=== PATIENT | female | born 1940 | race Caucasian/White ===

== ENCOUNTER 2019-01-21 14:31 | Emergency (ER) | payer OTHER ==
[2019-01-21] MEDS ORDERED: TRAMADOL HCL 50 MG TAB ONE (14:43)
--- NOTE | 2019-01-21 15:26 | RAD REPORT ---
EXAM DESCRIPTION: RAD - Ankle Right 3 View - 01/21/2019 3:11 pm CLINICAL HISTORY: Trip and fall, ankle pain COMPARISON: None. FINDINGS: A trimalleolar fracture dislocation is present. There is a transverse fracture at the medi al malleolus with an oblique fracture of the distal fibula at the level of the tibiotalar joint line. A large posterior malleolus fracture fragment is present and the dome of the talus is dislocated pos teriorly. A fracture of the talus or calcaneus not identified. No midfoot fracture seen. Soft tissue swelling is present. No foreign body. IMPRESSION: Right ankle trimalleolar fracture dislocation as detailed.
[2019-01-21] MEDS ORDERED: NA CHLORIDE 0.9% 500 ML ONE (15:33)
[2019-01-21] MEDS ORDERED: ONDANSETRON 4 MG/2 ML VIAL ONE (15:33)
[2019-01-21] MEDS ORDERED: MORPHINE 4 MG/ML SYR ONE (15:33)
[2019-01-21] MEDS ORDERED: PROPOFOL 200 MG/20 ML VIAL IV ONE (15:34)
--- NOTE | 2019-01-21 16:23 | RAD REPORT ---
EXAM DESCRIPTION: RAD - Ankle Left 3 View - 01/21/2019 3:56 pm CLINICAL HISTORY: Trip and fall, ankle pain COMPARISON: None. FINDINGS: No fracture, dislocation or periosteal reaction. No joint effusion seen. Mild degenerative spurring changes are seen in the medial malleolus and tip of the fibula. Patient has spurring at the Achilles attachment. Mild soft tissue swelling is present. No foreign body. IMPRESSION: Mild soft tissue swelling with no acute bone or joint finding seen.
--- NOTE | 2019-01-21 16:40 | EDPHYS ---
Physician Documentation [facility] Name: Kassidy Montana Age: 78 yrs Sex: Female : 1940 Arrival Date: 01/21/2019 Time: 14:42 Bed 28 Private MD: ED Physician Lanre Green HPI: 01/21 15:35 This 78 yrs old Female presents to ER via EMS with complaints of ankle pain kb s/p fall. 15:35 The patient presents with a deformity, an injury, pain, swelling, tenderness. The kb complaints affect the right ankle. Onset: The symptoms/episode began/occurred just prior to arrival. Context: The problem was sustained outdoors, resulted from a mis-step by the patient, step, The mechanism of injury is unknown. The patient is unable to bear weight. The patient is not able to ambulate. Associated signs and symptoms: Pertinent positives: swelling. Modifying factors: The symptoms are alleviated by nothing, the symptoms are aggravated by weight bearing, movement. Severity of symptoms: At their worst the symptoms were moderate, in the emergency department the symptoms are unchanged. The patient has not experienced similar symptoms in the past. The patient has not recently seen a physician. Pt reports she stepped off of a step wrong and twisted her right ankle.. Historical: - Allergies: 14:49 No Known Allergies; rv - Home Meds: 14:49 atorvastatin oral oral [Active]; carvedilol oral oral [Active]; Furosemide Oral rv [Active]; pantoprazole oral oral [Active]; Singulair Oral [Active]; - PMHx: 14:49 CHF; Asthma; Pacemaker; rv - PSHx: 14:49 Appendectomy; rv - Immunization history:: Adult Immunizations up to date. - Social history:: Smoking status: Patient/guardian denies using tobacco, never smoked. - Ebola Screening: : No symptoms or risks identified at this time. ROS: 15:40 Constitutional: Negative for fever, chills, and weight loss, Cardiovascular: Negative kb for chest pain, palpitations, and edema, Respiratory: Negative for shortness of breath, cough, wheezing, and pleuritic chest pain, Abdomen/GI: Negative for abdominal pain, nausea, vomiting, diarrhea, and constipation, Back: Negative for injury and pain, Skin: Negative for injury, rash, and discoloration, Neuro: Negative for headache, weakness, numbness, tingling, and seizure. 15:40 MS/extremity: Positive for injury or acute deformity, decreased range of motion, pain, swelling, tenderness. Exam: 15:40 Constitutional: This is a well developed, well nourished patient who is awake, alert, kb and in no acute distress. Head/Face: Normocephalic, atraumatic. ENT: Nares patent. No nasal discharge, no septal abnormalities noted. Tympanic membranes are normal and external auditory canals are clear. Oropharynx with no redness, swelling, or masses, exudates, or evidence of obstruction, uvula midline. Mucous membranes moist. Neck: Trachea midline, no thyromegaly or masses palpated, and no cervical lymphadenopathy. Supple, full range of motion without nuchal rigidity, or vertebral point tenderness. No Meningismus. Chest/axilla: Normal chest wall appearance and motion. Nontender with no deformity. No lesions are appreciated. Cardiovascular: Regular rate and rhythm with a normal S1 and S2. No gallops, murmurs, or rubs. Normal PMI, no JVD. No pulse deficits. Respiratory: Lungs have equal breath sounds bilaterally, clear to auscultation and percussion. No rales, rhonchi or wheezes noted. No increased work of breathing, no retractions or nasal flaring. Abdomen/GI: Soft, non-tender, with normal bowel sounds. No distension or tympany. No guarding or rebound. No evidence of tenderness throughout. Skin: Warm, dry with normal turgor. Normal color with no rashes, no lesions, and no evidence of cellulitis. Neuro: Awake and alert, GCS 15, oriented to person, place, time, and situation. Cranial nerves II-XII grossly intact. Motor strength 5/5 in all extremities. Sensory grossly intact. Cerebellar exam normal. Normal gait. 15:40 Musculoskeletal/extremity: Extremities: grossly normal except: noted in the right ankle: decreased ROM, deformity, pain, swelling, tenderness, ROM: limited active range of motion due to pain, in the right ankle, Circulation is intact in all extremities. Sensation intact. Weight bearing: is unable to bear weight. Vital Signs: 14:47 BP 117 / 52; Pulse 76; Resp 16; Temp 98.6; Pulse Ox 96% on R/A; Weight 60.33 kg; Height rv 5 ft. 2 in. (157.48 cm); 15:30 BP 112 / 55; Pulse 68; Resp 16; Pulse Ox 95% on R/A; rv 16:00 BP 121 / 50; Pulse 67; Resp 17; Pulse Ox 95% on R/A; rv 16:30 BP 108 / 81; Pulse 62; Resp 16; Pulse Ox 100% on 2 lpm NC; rv 14:47 Body Mass Index 24.33 (60.33 kg, 157.48 cm) rv Procedures: 16:22 Splinting: Splint applied to right ankle using Orthoglass splint, applied by myself. rn post reduction film - reveals improved alignment, Examined by me, post splint application: neurovascular intact, 2+ distal pulses palpable, brisk capillary refill noted, Patient tolerated well. Reduction: of the right ankle, using traction, manipulation, Immobilized with stirrup and posterior leg splints. Patient tolerated well. Post reduction film - reveals improved alignment. Moderate sedation: Pre-procedure assessment: the patient has been NPO 4 hour(s) prior to arrival, ASA physical classification: II - mild/mod systemic disease that does not interfere with daily routines, Airway assessment: able to hyperextend neck, able to maintain airway, can open mouth without difficulty, Monitoring during procedure: monitoring and evaluation advisor, continuous pulse oximetry, nurse at bedside at all times, Medications employed: Propofol 80mg, Post-procedure assessment: the patient is mildly sedated, Respiratory status: even and unlabored, a reversal agent was not used. MDM: 14:45 Patient medically screened. kb 15:41 Data reviewed: vital signs, nurses notes. Data interpreted: Pulse oximetry: on room air kb is 96 %. Interpretation: normal. 16:16 Counseling: I had a detailed discussion with the patient and/or guardian regarding: the kb historical points, exam findings, and any diagnostic results supporting the discharge/admit diagnosis, radiology results, the need for outpatient follow up, a orthopedic surgeon, to return to the emergency department if symptoms worsen or persist or if there are any questions or concerns that arise at home. 16:22 ED course: Pt awake and smiling after reduction/sedation, awaiting post reduction film, rn anticipate dc home with ortho f/u and non-weight bearing, with crutches.. 01/21 14:47 Order name: Ankle Right 3 View XRAY; Complete Time: 15:40 kb 01/21 15:40 Order name: Ankle Left 3 View XRAY; Complete Time: 16:31 kb 01/21 16:21 Order name: Ankle Right 2 View XRAY kb 01/21 15:27 Order name: IV Start; Complete Time: 15:33 kb 01/21 15:27 Order name: Conscious Sedation; Complete Time: 15:48 kb 01/21 16:17 Order name: Splint Leg: Short Leg; Complete Time: 16:28 kb 01/21 16:17 Order name: Crutches; Complete Time: 16:28 kb Administered Medications: 14:45 Drug: traMADol 50 mg Route: PO; rv 16:39 Follow up: Response: No adverse reaction rv 15:40 Drug: morphine 4 mg Route: IVP; Site: left forearm; rv 16:40 Follow up: Response: No adverse reaction; Marked relief of symptoms; Pain is decreased rv 15:40 Drug: Zofran 4 mg Route: IVP; Site: left forearm; rv 16:40 Follow up: Response: No adverse reaction rv Disposition: 17:33 Co-signature as Attending Physician, Lanre Green MD. rn Disposition: 01/21/19 16:39 Discharged to Home. Impression: Trimalleolar fracture of lower leg - with dislocation, right ankle. - Condition is Stable. - Discharge Instructions: Displaced Trimalleolar Ankle Fracture Treated With Open Reduction, Ankle Fracture, [id number]. - Prescriptions for Tylenol- Codeine #3 300-30 mg Oral Tablet - take 2 tablets by ORAL route every 6 hours As needed; 16 tablet. - Medication Reconciliation Form, Thank You Letter, Antibiotic Education, Prescription Opioid Use form. - Follow up: Emergency Department; When: As needed; Reason: Worsening of condition. Follow up: Private Physician; When: 2 - 3 days; Reason: Recheck today's complaints, Continuance of care, Re-evaluation by your physician. Signatures: Dispatcher [employer] Elmira Villalpando, CLEANING TEAM MEMBER-C CLEANING TEAM MEMBER-Lanre Simms MD MD rn Vicente, Ronaldo, RN RN rv Corrections: (The following items were deleted from the chart) 17:00 16:39 01/21/2019 16:39 Discharged to Home. Impression: Trimalleolar fracture of lower rv leg - with dislocation, right ankle. Condition is Stable. Forms are Medication Reconciliation Form, Thank You Letter, Antibiotic Education, Prescription Opioid Use. Follow up: Emergency Department; When: As needed; Reason: Worsening of condition. Follow up: Private Physician; When: 2 - 3 days; Reason: Recheck today's complaints, Continuance of care, Re-evaluation by your physician. kb
--- NOTE | 2019-01-21 16:40 | ER ---
Nurse's Notes [facility] Name: Kassidy Montana Age: 78 yrs Sex: Female : 1940 Arrival Date: 01/21/2019 Time: 14:42 Bed 28 Private MD: Diagnosis: Trimalleolar fracture of lower leg-with dislocation, right ankle Presentation: 01/21 14:44 Presenting complaint: EMS states: patient fell from the last step of the stairs and rv landed her rear on top of her feet. denies any head injury. does not take any blood thinner. no LOC. complains of pain on both feet, worse on the right ankle. noticed swelling of the right ankle. Transition of care: patient was not received from another setting of care. Onset of symptoms was January 21, 2019 at 14:30. Risk Assessment: Do you want to hurt yourself or someone else? Patient reports no desire to harm self or others. Initial Sepsis Screen: Does the patient meet any 2 criteria? No. Patient's initial sepsis screen is negative. Does the patient have a suspected source of infection? No. Patient's initial sepsis screen is negative. Care prior to arrival: None. 14:44 Method Of Arrival: EMS rv 14:44 Acuity: ZOHRA 3 rv Historical: - Allergies: 14:49 No Known Allergies; rv - Home Meds: 14:49 atorvastatin oral oral [Active]; carvedilol oral oral [Active]; Furosemide Oral rv [Active]; pantoprazole oral oral [Active]; Singulair Oral [Active]; - PMHx: 14:49 CHF; Asthma; Pacemaker; rv - PSHx: 14:49 Appendectomy; rv - Immunization history:: Adult Immunizations up to date. - Social history:: Smoking status: Patient/guardian denies using tobacco, never smoked. - Ebola Screening: : No symptoms or risks identified at this time. Screenin:51 Abuse screen: Denies threats or abuse. Denies injuries from another. Nutritional rv screening: No deficits noted. Tuberculosis screening: No symptoms or risk factors identified. Fall Risk None identified. Assessment: 14:50 General: Appears in no apparent distress. comfortable, Behavior is calm, cooperative. rv Pain: Complains of pain in right foot and left foot. Neuro: Level of Consciousness is awake, alert, obeys commands, Oriented to person, place, time, situation. Cardiovascular: Patient's skin is warm and dry. Respiratory: Airway is patent. GI: No signs and/or symptoms were reported involving the gastrointestinal system. : No signs and/or symptoms were reported regarding the genitourinary system. EENT: No signs and/or symptoms were reported regarding the EENT system. Derm: Skin is fragile. Musculoskeletal: Swelling present in right ankle. 15:49 Reassessment: Patient appears in no apparent distress at this time. Patient and/or rv family updated on plan of care and expected duration. Pain level reassessed. Patient is alert, oriented x 3, equal unlabored respirations, skin warm/dry/pink. Dr Green went to exam room explained to the patient and family the result of Xray and plan of care. consent signed by the patient. Vital Signs: 14:47 BP 117 / 52; Pulse 76; Resp 16; Temp 98.6; Pulse Ox 96% on R/A; Weight 60.33 kg; Height rv 5 ft. 2 in. (157.48 cm); 15:30 BP 112 / 55; Pulse 68; Resp 16; Pulse Ox 95% on R/A; rv 16:00 BP 121 / 50; Pulse 67; Resp 17; Pulse Ox 95% on R/A; rv 16:30 BP 108 / 81; Pulse 62; Resp 16; Pulse Ox 100% on 2 lpm NC; rv 14:47 Body Mass Index 24.33 (60.33 kg, 157.48 cm) rv ED Course: 14:42 Patient arrived in ED. rv 14:44 Elmira Domingo FNP-C [facility]. kb 14:44 Lanre Green MD is Attending Physician. kb 14:47 Triage completed. rv 14:52 Patient has correct armband on for positive identification. Placed in gown. Bed in low rv position. Call light in reach. Side rails up X 1. Pulse ox on. NIBP on. 14:52 Patient placed in the treatment room, on a stretcher, on pulse oximetry, Patient rv notified of wait time. 14:53 Ice pack to injury. rv 14:54 Reginald Trujillo, HOLLY is Primary Nurse. rv 15:14 Ankle Right 3 View XRAY In Process Unspecified. EDMS 15:35 Inserted saline lock: 20 gauge in left forearm, using aseptic technique. rv 15:58 Ankle Left 3 View XRAY In Process Unspecified. EDMS 16:25 Assist provider with fracture care of right leg and right ankle Fracture is closed. jp3 Obvious deformity Set up for procedure. Performed by Lanre Green MD Reduced with physical manipulation. Immobilized with orthoglass. Patient tolerated well. Richard wrap to right ankle Orthoglass splint: Posterior short lleg splint applied on right leg. stirrup splint applied on right leg. 16:31 Assist provider with reduction of right ankle using manipulation, Set up for procedure. rv Performed by Lanre Green MD Patient tolerated well. 16:38 Ankle Right 2 View XRAY In Process Unspecified. EDMS 16:44 IV discontinued, intact, bleeding controlled, No redness/swelling at site. Pressure rv dressing applied. Administered Medications: 14:45 Drug: traMADol 50 mg Route: PO; rv 16:39 Follow up: Response: No adverse reaction rv 15:40 Drug: morphine 4 mg Route: IVP; Site: left forearm; rv 16:40 Follow up: Response: No adverse reaction; Marked relief of symptoms; Pain is decreased rv 15:40 Drug: Zofran 4 mg Route: IVP; Site: left forearm; rv 16:40 Follow up: Response: No adverse reaction rv Outcome: 16:39 Discharge ordered by MD. kb 16:42 Discharged to home via wheelchair, with crutches, with family. rv 16:42 Condition: good 16:42 Discharge instructions given to patient, family, Instructed on discharge instructions, follow up and referral plans. medication usage, crutch walking, Demonstrated understanding of instructions, follow-up care, medications, crutch walking, splint care, Prescriptions given X 16:44 Prescriptions given X 1. rv 17:00 Patient left the ED. rv Signatures: Dispatcher [employer] EDMS Elmira Domingo FNP-C FNP-Reginald Hunter RN RN Gagan Charles jp3
--- NOTE | 2019-01-21 16:52 | RAD REPORT ---
EXAM DESCRIPTION: RAD - Ankle Right 2 View - 01/21/2019 4:37 pm FINDINGS: Right ankle two view examination performed. Cast or splint material is in place. Dislocated talus has been reduced to anatomic positioning. Large posterior malleolus fracture fragmen t again noted. Fibula and medial malleolus fracture fragments are not significantly different.
[2019-01-21 17:24] VITALS: TEMP 98.6
[2019-01-21 17:28] VITALS: BP 108/81; O2SAT 100
== END 2019-01-21 17:00 | disposition home or self-care (01) ==
LOC: ER 14:31
PROC: 0QSGXZZ Reposition Right Tibia, External Approach (ICD-10-PCS; principal; 2019-01-21)
DX: S82.851A Displaced trimalleolar fracture of right lower leg, initial encounter for closed fracture (principal); W10.9XXA Fall (on) (from) unspecified stairs and steps, initial encounter; Y93.9 Activity, unspecified; Y92.9 Unspecified place or not applicable; Z95.0 Presence of cardiac pacemaker; J45.909 Unspecified asthma, uncomplicated; I50.9 Heart failure, unspecified
CPT/HCPCS: 73610 ×2; 73600; 96375; 96374; 99285; 27818; J2704; J7040; J2405

== ENCOUNTER 2019-01-25 09:33 | Day surgery (SDC) | payer OTHER ==
[2019-01-25 10:01] LABS: Absolute Lymphocytes (CBC) 1.5 K/uL (0.7-4.9); Basophils % 0.4 % (0-1.3); Hematocrit 35.8 % (36.0-45.0); RBC Red Blood Cell Count 3.83 M/uL (3.86-4.86)
[2019-01-25] MEDS ORDERED: Ringers Lactate 1,000 ML IV ONE ×2 (10:05→12:51)
[2019-01-25] MEDS ORDERED: CEFAZOLIN/SWI 1gm 1 GM/10 ML SYR ONE (10:05)
[2019-01-25] MEDS ORDERED: NS 0.9% VIAL 10 ML ONE ×2 (10:36→12:46)
[2019-01-25] MEDS ORDERED: dexAMETHasone 10 MG/ML VIAL ONE (10:37)
[2019-01-25] MEDS ORDERED: ROPLVACAINE HCL 40 ML ONE (10:37)
[2019-01-25] MEDS ORDERED: FENTANYL CITR 100 MCG/2 ML ONE (10:37)
[2019-01-25] MEDS ORDERED: MIDAZOLAM HCL 2 MG/2 ML INJ ONE (10:37)
[2019-01-25] MEDS ORDERED: LIDOCAINE 2% MPF 5 ML VIAL ONE (11:27)
[2019-01-25] MEDS ORDERED: PROPOFOL 200 MG/20 ML VIAL IV ONE (11:27)
[2019-01-25] MEDS ORDERED: ONDANSETRON 4 MG/2 ML VIAL ONE (11:32)
[2019-01-25] MEDS ORDERED: Phenylephrine HCl 10 MG/ML 1 ML VIAL ONE (12:46)
--- NOTE | 2019-01-25 14:21 | P.BOP ---
Preoperative diagnosis: right trimalleolar ankle fx Postoperative diagnosis: same Primary procedure: ORIF bimalleolar Estimated blood loss: 10 ccs Anesthesia: General Complications: None Transferred to: Recovery Room Condition: Good
--- NOTE | 2019-01-25 14:39 | RAD REPORT ---
EXAM DESCRIPTION: RAD - Ankle Right 2 View - 01/25/2019 2:35 pm CLINICAL HISTORY: ORIF COMPARISON: Ankle Right 2 View dated 01/21/2019 FINDINGS: Fluoroscopy time 0.5 minutes.
[2019-01-25] MEDS ORDERED: HYDROCODONE/APAP 5/325 MG TAB ONE (15:37)
[2019-01-25 15:56] VITALS: BP 123/58; TEMP 97.1; O2SAT 93
--- NOTE | 2019-01-25 16:51 | EKG ---
Test Date: 2019-01-25 Test Time: 09:53:39 Supervisor Looping: KRIS MEASUREMENT RESULTS: Intervals: Rate: 80 ME: 124 QRSD: 116 QT: 416 QTc: 479 [place]: P: 78 ME: 124 QRS: 160 T: 87 INTERPRETIVE STATEMENTS: Atrial-sensed ventricular-paced rhythm tracking sinus rhytym Compared to ECG 03/09/2011 10:16:28 No significant changes Electronically Signed On 01-25-19 16:50:32 SALOON KEEPER by Fer Gomez
--- NOTE | 2019-01-26 01:45 | OP ---
Date of Procedure: 01/25/2019 Surgeon: Allen Odonnell MD Preoperative Diagnosis: Right trimalleolar ankle fracture. Postoperative Diagnosis: Right trimalleolar ankle fracture. Procedures: Right open reduction and internal fixation of both medial and lateral malleolus. Plate Used: Acumed 3 ankle set. Estimated Blood Loss: 10 mL. Complications: There were no complications. Specimens: No pathology specimens sent. Indications For Operation: Ms. Montana is a 78-year-old female who unfortunately injured her right low er extremity. This was approximately 3 days ago. She saw me in my office yesterday and her splint w as taken down. She did not have any fracture blisters and the skin did wrinkle. We plan on operatin g on her today, but only if the skin does wrinkle. All risks, benefits, and alternatives to the proc edure were discussed with her at that time as well as in holding. In the holding area, her skin was examined and found that it did indeed wrinkle in the time allowed for operative intervention. X-rays revealed a trimalleolar ankle fracture with a very small medial malleolar fragment. Description Of Procedure: The patient was taken to the operating room and placed in supine position, general anesthesia was obtained by the staff. Following this, well-padded tourniquet was placed on superior right thigh. Right lower extremity was then prepped and draped in the usual fashion for the procedure. Following this, the leg was then elevated, but not exsanguinated. Tourniquet was raised . C-arm was brought in and a standard medial incision was taken down carefully through the skin and soft tissues. Meticulous hemostasis being maintained using Bovie electrocautery. This leads down to the fracture fragment, which is quite small, it did appear that would hold 1 cannulated screw. Also , it should be noted that the bone was extremely osteoporotic. Cannulated screw was then placed with some compression and reapproximating the joint surface of the medial malleolus. Following this, it irrigated and the skin was closed using interrupted Vicryl sutures followed by yolanda. Attention wa s then turned to the lateral aspect and a bump was placed under the right hip. C-arm was brought in to elsie the location of the fracture and a fairly long relaxing incision was made carefully through s kin and soft tissues. Meticulous hemostasis being maintained using Bovie electrocautery. This leads down to the fracture site, which was then cleared. The bone was so osteoporotic that the reduction clamp very easily penetrates the cortex. Therefore, this is used in a very limited fashion. Also, I do not feel that a standard lag screw would be of benefit because of her very poor bone stock. This is also the reason we used the Acumed locking plate as this is applied with locking screws for more rigid construct. The ankle was held in a position of reduction and then a more or less bridge platin g technique is used to place the plate. Did place the plate slightly more proximal than normal as it is felt that more distally we would have less bony purchase. The wound was then irrigated and the s kin was closed using interrupted Vicryl sutures, followed by yolanda. The patient was then placed in extremely well-padded sterile dressing as well as a posterior splint with a U. She is awakened and taken to the recovery room in good condition. There were no complications. /CALEB Voice ID: [id number] Report ID: [id number]
== END 2019-01-25 16:22 | disposition home or self-care (01) ==
LOC: OR 09:33
PROVIDERS: ATTEND Orthopaedic Surgery
PROC: 0QSG04Z Reposition Right Tibia with Internal Fixation Device, Open Approach (ICD-10-PCS; 2019-01-25)
PROC: 0QSJ04Z Reposition Right Fibula with Internal Fixation Device, Open Approach (ICD-10-PCS; principal; 2019-01-25 12:30)
DX: S82.851A Displaced trimalleolar fracture of right lower leg, initial encounter for closed fracture (principal); J45.909 Unspecified asthma, uncomplicated; E78.5 Hyperlipidemia, unspecified; K21.9 Gastro-esophageal reflux disease without esophagitis; Z95.0 Presence of cardiac pacemaker; Z79.01 Long term (current) use of anticoagulants
CPT/HCPCS: 93005; 85025; 80048; 36415; 73600; 27814; J2704; J2370; J2250; J3010; J1100; J2795; J0690; J7120 ×2; J2405

== ENCOUNTER 2022-09-21 17:41 | Emergency (ER) | payer OTHER ==
--- OUTSIDE RECORDS SUMMARY | 2022-09-21 17:44 | XMS REPORT | Continuity of Care Document ---
:1940 Author Organization [facility] t Address [address] [place] [address] [address] [place] [address] Care Team Providers Name Role Phone STEPHANIE NORTON Attending Clinician Unavailable [id number] Attending Clinician Unavailable Erinn Gudino APRN Attending Clinician DERICK WILLIS Attending Clinician Unavailable Payers Payer Name Policy Type Policy Number Effective Date Expiration Date S liv [employer] MEDICARE [id number] 2019 2024 HMO 00:00:00 00:00:00 [place] 5 [id number] 2022 00:00:00 Problems Condition Condition Condition Status Onset Resolution Last Treating Co mments Source Name Details Category Date Date Treatment Clinician Date Right hip Right hip Disease Active Shai orona pain pain 6-05 Seybold 00:00: - 00 Externa l Well adult Well adult Disease Active K aldair exam exam 1-18 Seybold 00:00: - 00 Externa l Primary Primary Disease Active Jeanna hypertensi hypertensi 1-18 Se ybold on on 00:00: - 00 Externa l Chronic Chronic Disease Active Jeanna systolic systolic 1-18 Seybol d congestive congestive 00:00: - heart heart 00 Externa failure failure l Gastroesop Gastroesop Disease Active K aldair hageal hageal 1-18 Seybold reflux reflux 00:00: - disease disease 00 Externa without without l esophagiti esophagiti s s 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 1-18 Se ybold asthma asthma 00:00: - without without 00 Externa complicati complicati l on on Seasonal Seasonal Disease Active Kelse y allergic allergic 1-18 Seybol d rhinitis rhinitis 00:00: - due to due to 00 Externa pollen pollen l Early dry Early dry Disease Active Shai sey stage stage 1-18 Seybold nonexudati nonexudati 00:00: - ve ve 00 Externa age-relate age-relate l 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 History of History of Disease Active K elsey cardiac cardiac 18 Seybold pacemaker pacemaker 00:00: - 00 Externa l History of History of Disease Active K elsey placement placement -18 Seyb old of of 00:00: - internal internal 00 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 ICD10 Diagnosis Term Insecticide Expert Utility HLD HLD Disease Active Overview: [place] (hyperlipi (hyperlipi 11-17 Counts Include [facility] Health demia) demia) 00:00: g of this 00 note might be different from the original. ICD10 Diagnosis Term Insecticide Expert Utility Left heart Left heart Disease Active U T failure failure 11-17 Health 00:00: 00 Reflux Reflux Disease Active UT esophagiti esophagiti 11-17 He alth s s 00:00: 00 Sleep Sleep Disease Active Overview: [place] [facility]: g of this 00 note might be different from the original. ICD10 Diagnosis Term Insecticide Expert Utility Allergies, Adverse Reactions, Alerts This patient has no known allergies or adverse reactions. Social History Social Habit Start Date Stop Date Quantity Comments Source History SDOH Jeanna hendricks Alcohol Frequency - Exter nal History SDOH Jeanna Alonso ld Alcohol Std Drinks - Exte rnal Gender identity Jeanna ochoa - External Sexual orientation Jeanna Phan - External History SDOH Jeanna Rachelleaime hednricks Alcohol Binge - External Exposure to Not sure [facility] SARS-CoV-2 (event) Alcohol intake 2022-08-15 2022-08-15 Current drinker of [place] arevaloginger [place] 00:00:00 00:00:00 alcohol (finding) - Exter nal Education 2022-03-30 2022-03-30 16 Jeanna Phan 00:00:00 00:00:00 - External Tobacco use and 2022-03-30 2022-03-30 Smokeless tobacco Glen Phan exposure 00:00:00 00:00:00 non-user - External History of Social 2022-03-30 2022-03-30 Jeanna Rachelledebra function 00:00:00 00:00:00 - External Alcohol Comment 2022-03-30 2022-03-30 occasionally Jeannaadwoa Phan 00:00:00 00:00:00 - External Sex [birth year] At [birth year] Jeanna ochoa 00:00:00 00:00:00 - External Smoking Status Start Date Stop Date Source Never smoked tobacco Jeanna richardson - External Medications Ordered Filled Start Stop Current Ordering Indication Dosage Frequency Signature Comments Components Source Medication Medication Date Date Medication? Clinician (SIG) Name Name Budesonide- Yes 2{puff} Inhale 2 Jeanna Formoterol 6-05 puffs into Sey bold Fumarate 09:58: the lungs - 160-4.5 33 2 times Externa MCG/ACT daily l inhalation Aerosol Aspirin 81 2022-0 Yes 81mg Take 1 Kelse y MG oral 6-05 tablet (81 Seybol d Tablet 09:58: mg total) - Delayed 33 by mouth Externa Response daily l [place]-3 2022-0 Yes 1{capsu Take 1 Kelse y Fatty Acids 6-05 le} capsule by Se ybold (Fish Oil) 09:58: mouth 2 - 1200 MG 33 times Externa oral daily l Capsule Pantoprazol 2022-0 Yes 40mg Take 1 Ana ey e Sodium 40 6-05 tablet (40 Se ybold MG oral 09:58: mg total) - Tablet 33 by mouth Externa Delayed daily l Response Sacubitril- 2022-0 Yes 1{each} Take 1 K elsey Valsartan 6-05 each by Seybold 49-51 MG 09:58: mouth 2 - oral Tablet 33 times Externa daily l Atorvastati 0 Yes [id number] 10mg Take 1 Jeanna n Calcium 6-05 tablet (10 Seyb old (Lipitor) 00:00: mg total) - 10 MG oral 00 by mouth Exter na Tablet nightly l Tizanidine 0 Yes [id number] 2mg QD Take 1 Jeanna HCl 2 MG 6-05 9102 tablet (2 Seybol d oral Tablet 00:00: mg total) - 00 by mouth Externa nightly as l needed for muscle spasms Albuterol 2022-0 Yes 2{puff} Q.25D Inhale 2 Jeanna HFA 108 (90 5-08 puffs into Se ybold Base) 00:00: the lungs - MCG/ACT IN 00 every 6 Him Specialist a AERS hours as l needed for shortness of breath Montelukast 0 Yes 10mg Take 1 Ana ey (SINGULAIR) 5-08 tablet (10 Se ybold 10 MG oral 00:00: mg total) - Tablet 00 by mouth Externa tablet nightly l Carvedilol 2022-0 Yes 6.25mg Take 1 Shai sey 6.25 MG 4-11 tablet Seybold oral Tablet 00:00: (6.25 mg - 00 total) by Externa mouth in l the morning and 1 tablet (6.25 mg total) in the evening. Take with meals. Amoxicillin 0 2022- No [id number] 1{tbl} Take 1 Jeanna -Pot 2-20 06-05 tablet by [employer] Systemsold Clavulanate 00:00: 00:00 mouth 2 - 875-125 MG 00 :00 times Externa oral Tablet daily l [place]-3 Yes 1{capsu Take 1 Kelse y Fatty Acids 1-18 le} capsule by Bizzby ybold (Fish Oil) 10:03: mouth 2 - 1200 MG 04 times Externa oral daily l Capsule Aspirin 81 Yes 81mg Take 81 mg K elsey MG oral 1-18 by mouth Seybold Tablet 10:02: daily - Delayed 37 Externa Response l Budesonide- Yes 2{puff} Inhale 2 Jeanna Formoterol 1-18 puffs into [facility] [employer] bold Fumarate 10:02: the lungs - 160-4.5 20 2 times Externa MCG/ACT daily l inhalation Aerosol Albuterol Yes 2{puff} Q.25D Inhale 2 Jeanna HFA 108 (90 1-18 puffs into Bizzby ybold Base) 10:02: the lungs - MCG/ACT IN 09 every 6 Him Specialist a AERS hours as l needed for shortness of breath Carvedilol Yes 6.25mg Take 6.25 Jeanna 6.25 MG 1-18 mg by Seybold oral Tablet 10:01: mouth in - 48 the Externa morning l and 6.25 mg in the evening. Take with meals. Montelukast Yes 10mg Take 10 mg Jeanna (SINGULAIR) 1-18 by mouth Seyb old 10 MG oral 10:01: nightly - Tablet 31 Externa tablet l Sacubitril- Yes 1{each} Take 1 K elsey Valsartan 1-18 each by Seybold 49-51 MG 10:01: mouth 2 - oral Tablet 19 times Externa daily l Pantoprazol Yes 40mg Take 40 mg Jeanna e Sodium 40 1-18 by mouth Seyb old MG oral 10:00: daily - Tablet 56 Externa Delayed l Response pantoprazol Yes 40mg Take 40 mg UT e 5-18 by mouth 1 Health (ProtoNix) 19:56: (one) time 40 MG EC 37 each day tablet before breakfast. Do not crush, chew, or split. budesonide- Yes 2{puff} Q.5D Inhale 2 UT formoterol 5-18 puffs 2 Health (Symbicort) 19:56: (two) 160-4.5 37 times a MCG/ACT day. Rinse inhaler mouth with water after use to reduce aftertaste and incidence of candidiasi s. Do not swallow. sacubitril- Yes 1{tbl} Q.5D Take 1 UT valsartan 5-18 tablet by Healt h (Entresto) 19:56: mouth 2 49-51 MG 37 (two) tablet times a day. albuterol Yes 2{puff} Q6H Inhale 2 U T 108 (90 5-18 puffs Health Base) 19:56: every 6 MCG/ACT 37 (six) inhaler hours if needed for wheezing. Biotin 100 Yes Take by UT MG/GM 5-18 mouth. Health powder 19:56: 37 furosemide Yes Take by UT (Lasix) 20 5-18 mouth. Health MG tablet 19:56: 37 montelukast Yes 10mg QD Take 10 mg UT (Singulair) 4-10 by mouth 1 He alth 10 MG 00:00: (one) time tablet 00 each day. carvedilol Yes TAKE 1 UT (Coreg) 3-03 TABLET Health 6.25 MG 00:00: (6.25MG) tablet [address] 2 TIMES EVERY DAY WITH FOOD Immunizations Ordered Immunization Filled Immunization Date Status Commen ts Source Name Name Influenza Virus 2022-01-12 Completed Jeanna raviold Vaccine, 00:00:00 - External Quadrivalent, High Dose, Age 65 And Up Influenza Virus 2022-01-12 Completed Jeanna raviold Vaccine, 00:00:00 - External Quadrivalent, High Dose, Age 65 And Up Influenza Virus 2021-04-07 Completed Jeanna raviold Vaccine, 00:00:00 - External Quadrivalent, High Dose, Age 65 And Up Influenza Virus 2021-04-07 Completed Jeanna raviold Vaccine, 00:00:00 - External Quadrivalent, High Dose, Age 65 And Up Influenza Virus 2020-12-25 Completed Jeanna Fabian ybold Vaccine, 00:00:00 - External Quadrivalent, High Dose, Age 65 And Up Influenza Virus 2020-12-25 Completed Jeanna Fabian ybold Vaccine, 00:00:00 - External Quadrivalent, High Dose, Age 65 And Up Influenza Virus 2007-01-03 Completed Jeanna Fabian ybold Vaccine, Unspecified 00:00:00 - Ex ternal Formulation Influenza Virus 2007-01-03 Completed Jeanna Fabian ybold Vaccine, Unspecified 00:00:00 - Ex ternal Formulation Influenza Virus 2006-02-15 Completed Jeanna Fabian ybold Vaccine, Unspecified 00:00:00 - Ex ternal Formulation Influenza Virus 2006-02-15 Completed Jeanna ochoa Vaccine, Unspecified 00:00:00 - Ex ternal Formulation Vital Signs Vital Name Observation Time Observation Value Comments Source Body height 2022-08-15 14:56:00 157.5 cm Jeanna [place] - External Body weight 2022-08-15 14:56:00 56.246 kg Jeanna Daquan gingerbold - External BMI 2022-08-15 14:56:00 22.68 kg/m2 Jeanna Daquan [place] - External Oxygen saturation in 2022-08-15 14:56:00 98 /min Jeanna Phan - Arterial blood by External Pulse oximetry Systolic blood 2022-08-15 14:56:00 136 mm[Hg] Jeanna Phan - pressure External Diastolic blood 2022-08-15 14:56:00 75 mm[Hg] Edvin Phan - pressure External Heart rate 2022-08-15 14:56:00 75 /min Jeanna milesbold - External Body temperature 2022-08-15 14:56:00 37.06 Felipa Ana miles Seybold - External Respiratory rate 2022-08-15 14:56:00 14 /min Ana miles Seybold - External Systolic blood 2022-03-30 16:22:00 121 mm[Hg] Jeanna Bushold - pressure External Diastolic blood 2022-03-30 16:22:00 82 mm[Hg] Edvin nguyen Seybold - pressure External Heart rate 2022-03-30 16:22:00 84 /min Jeanna [place] - External Body temperature 2022-03-30 16:22:00 36.5 Felipa Ana Phan - External Respiratory rate 2022-03-30 16:22:00 15 /min Ana Phan - External Body height 2022-03-30 16:22:00 157.5 cm Jeanna [place] - External Body weight 2022-03-30 16:22:00 57.607 kg Jeanna [place] - External BMI 2022-03-30 16:22:00 23.23 kg/m2 Jeanna [place] - External Oxygen saturation in 2022-03-30 16:22:00 95 /min Jeanna Phan - Arterial blood by External Pulse oximetry Systolic blood 2020-07-28 19:53:00 138 mm[Hg] [facility] pressure Diastolic blood 2020-07-28 19:53:00 81 mm[Hg] [facility] pressure Heart rate 2020-07-28 19:53:00 83 /min [facility] Body weight 2020-07-28 19:53:00 57.153 kg [facility] Procedures This patient has no known procedures. Encounters Start End Encounter Admission Attending Care Care Encounter Source Date/Time Date/Time Type Type Clinicians Facility Department ID 2022-02-01 Outpatient [facility] [id number] [place] 11:58:37 [id number] Health 2022-09-21 2022-09-21 Outpatient JEANNA NORTON [id number] Jeanna 00:00:00 00:00:00 STEPHANIE Seybol d 2022-09-21 2022-09-21 Outpatient JEANNA NORTON [id number] Jeanna 00:00:00 00:00:00 STEPHANIE Seybol d 2022-09-21 2022-09-21 Outpatient JEANNA NORTON [id number] Jeanna 00:00:00 00:00:00 STEPHANIE Seybol d 2022-09-20 2022-09-20 Outpatient JEANNA NORTON [id number] Jeanna 00:00:00 00:00:00 STEPHANIE Seybol d 2022-08-30 2022-08-30 Outpatient JEANNA NORTON [id number] Jeanna 00:00:00 00:00:00 STEPHANIE Seybol d 2022-08-23 2022-08-23 Outpatient PREZAS, JEANNA CABRALES [id number] Jeanna 00:00:00 00:00:00 STEPHANIE Seybol d 2022-08-15 2022-08-15 Outpatient PREZAS, JEANNA CABRALES [id number] Jeanna 10:15:00 10:15:00 STEPHANIE Seybol d 2022-07-18 2022-07-18 Outpatient PREZAS, JEANNA CABRALES [id number] Jeanna 00:00:00 00:00:00 STEPHANIE Seybol d 2022-06-28 2022-06-28 Outpatient PREZAS, JEANNA CABRALES [id number] Jeanna 10:00:00 10:00:00 STEPHANIE Seybol d 2022-06-20 2022-06-20 Outpatient PREZAS, JEANNA CABRALES [id number] Jeanna 00:00:00 00:00:00 STEPHANIE Seybol d 2022-05-02 2022-05-02 Outpatient PREZAS, JEANNA CABRALES [id number] Jeanna 00:00:00 00:00:00 STEPHANIE Seybol d 2022-04-27 2022-04-27 Outpatient LAB90 JEANNA CABRALES [id number] Jeanna 11:00:00 11:00:00 Seybol d 2022-04-27 2022-04-27 Outpatient PREZAS, JEANNA CABRALES [id number] Jeanna 00:00:00 00:00:00 STEPHANIE Seybol d 2022-04-12 2022-04-12 Outpatient PREZAS, JEANNA CABRALES [id number] Jeanna 00:00:00 00:00:00 STEPHANIE Seybol d 2022-04-07 2022-04-07 Outpatient LAB90 JEANNA CABRALES [id number] Jeanna 15:00:00 15:00:00 Seybol d 2022-04-07 2022-04-07 Outpatient PREZAS, JEANNA CABRALES [id number] Jeanna 00:00:00 00:00:00 STEPHANIE Seybol d 2022-04-06 2022-04-06 Outpatient PREZAS, JEANNA CABRALES [id number] Jeanna 00:00:00 00:00:00 STEPHANIE Seybol d 2022-03-30 2022-03-30 Outpatient LAB90 JEANNA JEANNA [id number] Jeanna 11:15:00 11:15:00 Seybol d 2022-03-30 2022-03-30 Outpatient CIERRA JEANNA CABRALES [id number] Jeanna 10:15:00 10:15:00 STEPHANIE Seybol d 2020-07-28 2020-07-28 Office HENRIK Gudino [facility] [id number] [place] 14:33:57 16:00:32 Visit Erinn TOMASZ [id number] H martha RAY 2 [id number] 2020-07-17 2020-07-17 Outpatient SANTHOSH WILLIS CAR [id number] 13:55:00 18:45:00 [facility] Results This patient has no known results.
[2022-09-21] MEDS ORDERED: ONDANSETRON 4 MG/2 ML VIAL ONE (20:31)
[2022-09-21] MEDS ORDERED: NA CHLORIDE 0.9% 500 ML ONE (20:32)
[2022-09-21] MEDS ORDERED: NA CHLORIDE 0.9% 1,000 ML ONE (20:32)
[2022-09-21 20:54] LABS: Absolute Lymphocytes (CBC) 1.5 K/uL (0.7-4.9); Hematocrit 42.7 % (36.0-45.0); Lymphocytes % 9.7 % (15.3-44.8); RBC Red Blood Cell Count 4.64 M/uL (3.86-4.86)
[2022-09-21 21:45] LABS: Albumin 3.4 g/dL (3.4-5.0); Bilirubin Total 0.6 mg/dL (0.2-1.0); Potassium 4.2 mEq/L (3.5-5.1); Protein, Total 7.2 g/dL (6.4-8.2)
[2022-09-21] MEDS ORDERED: FENTANYL CITR 100 MCG/2 ML ONE (22:40)
[2022-09-21] MEDS ORDERED: METOCLOPRAMIDE 10 MG/2mL INJ ONE (22:40)
[2022-09-21] MEDS ORDERED: DIPHENHYDRAMINE 50 MG/ML VIAL ONE (22:40)
[2022-09-21] MEDS ORDERED: KETOROLAC 30 MG/ML INJ ONE (22:41)
--- NOTE | 2022-09-21 22:48 | RAD REPORT ---
EXAM DESCRIPTION: CT - Head Brain Wo Cont - 09/21/2022 10:40 pm CLINICAL HISTORY: HEADACHE COMPARISON: Head angio dated 09/21/2022 TECHNIQUE: All CT scans are performed using dose optimization technique as appropriate and may inclu de automated exposure control or mA/KV adjustment according to patient size. FINDINGS: No intracranial hemorrhage, hydrocephalus or extra-axial fluid collection.No areas of brai n edema or evidence of midline shift. Mild chronic small vessel ischemic changes. Left sphenoid sinus opacification. Some of the sphenoid sinus contents are hyperdense and may represe nt inspissated secretions. The calvarium is intact. IMPRESSION: No acute intracranial abnormality.
--- NOTE | 2022-09-21 22:52 | RAD REPORT ---
EXAM DESCRIPTION: CT - Neck Angio - 09/21/2022 10:40 pm CLINICAL HISTORY: HEADACHE COMPARISON: No comparisons TECHNIQUE: CT angiography of the neck vessels was performed with maximum intensity reformatted image s. 3D maximum intensity pixel (MIP) reconstructions were created All CT scans are performed using dose optimization technique as appropriate and may include automated exposure control or mA/KV adjustment according to patient size. CAROTID STENOSIS REFERENCE USING NASCET CRITERIA: Mild - <50% stenosis. Moderate - 50-69% stenosis. Severe - 70-94% stenosis. Near occlusion - 95-99% stenosis. Occluded - 100% stenosis. FINDINGS: A left aortic arch is identified with normal three vessel configuration of the great vesse ls. No significant flow abnormality is seen of the common carotid bilaterally. Mild calcified plaque at b oth proximal ICAs. No significant stenosis is identified involving the cervical segments of both internal carotid arteri es. Normal flow is seen within both vertebral arteries. Apical scarring. Left lower lobe pulmonary nodule measuring 10 millimeters. Right upper lobe pulmonar y nodule calcified hilar and mediastinal lymph nodes. These findings are likely related to remote gra nulomatous disease. IMPRESSION: No significant flow abnormality of the neck vessels is identified. Apical lung scarring, calcified mediastinal and hilar lymph nodes, and architectural distortion likel y sequela of remote infection in the lungs. Some discrete pulmonary nodules are noted. A 3-6 month fo llow-up chest CT could be considered.
--- NOTE | 2022-09-21 22:53 | RAD REPORT ---
EXAM DESCRIPTION: CT - Head angio - 09/21/2022 10:40 pm CLINICAL HISTORY: HEADACHE COMPARISON: No comparisons TECHNIQUE: CT angiography of the head was performed with maximum intensity reformatted images. 3D ma ximum intensity pixel (MIP) reconstructions were created All CT scans are performed using dose optimization technique as appropriate and may include automated exposure control or mA/KV adjustment according to patient size. FINDINGS: Anterior circulation: No aneurysm or large vessel occlusion. No hemodynamically significant stenosis. No arteriovenous malf ormation identified. Posterior circulation: No aneurysm or large vessel occlusion. No hemodynamically significant stenosis. No arteriovenous malf ormation identified. 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 Opacified left sphenoid sinus. IMPRESSION: No significant flow abnormality is detected.
--- NOTE | 2022-09-21 23:32 | EDPHYS ---
Physician Documentation [facility] Name: Kassidy Montana Age: 82 yrs Sex: Female : 1940 Arrival Date: 09/21/2022 Time: 17:41 Bed 4 Private MD: ED Physician Dave Carreon HPI: 09/21 21:36 This 82 yrs old Female presents to ER via Ambulatory with complaints of mary Headache. 21:36 The patient complains of pain to the top of head, forehead and left hoahaoism. The patient mary describes the headache as constant. Onset: The symptoms/episode began/occurred 3 day(s) ago. Associated signs and symptoms: Pertinent positives: nausea. Severity of symptoms: At its worst the pain was moderate, in the emergency department the pain is unchanged. Headache History: Denies prior headaches. The symptoms are alleviated by nothing. the symptoms are aggravated by nothing. The patient has not experienced similar symptoms in the past. Historical: - Allergies: 17:51 No Known Allergies; ll1 - PMHx: 17:51 CHF; Asthma; Pacemaker; Arthritis; macular degeneration; ll1 - PSHx: 17:51 pacemaker replaced; ll1 - Immunization history:: Client reports receiving the 2nd dose of the Covid vaccine. - Social history:: Smoking status: Patient denies any tobacco usage or history of. - Family history:: not pertinent. ROS: 21:36 Constitutional: Negative for fever, chills, and weight loss, Eyes: Negative for injury, mary pain, redness, and discharge, ENT: Negative for injury, pain, and discharge, Neck: Negative for injury, pain, and swelling, Cardiovascular: Negative for chest pain, palpitations, and edema, Respiratory: Negative for shortness of breath, cough, wheezing, and pleuritic chest pain, Abdomen/GI: Negative for abdominal pain, nausea, vomiting, diarrhea, and constipation, Back: Negative for injury and pain, : Negative for injury, bleeding, discharge, and swelling, MS/Extremity: Negative for injury and deformity, Skin: Negative for injury, rash, and discoloration, Psych: Negative for depression, anxiety, suicide ideation, homicidal ideation, and hallucinations, Allergy/Immunology: Negative for hives, rash, and allergies, Endocrine: Negative for neck swelling, polydipsia, polyuria, polyphagia, and marked weight changes, Hematologic/Lymphatic: Negative for swollen nodes, abnormal bleeding, and unusual bruising. 21:36 Neuro: Positive for headache. Exam: 21:36 Constitutional: This is a well developed, well nourished patient who is awake, alert, mary and in no acute distress. Head/Face: Normocephalic, atraumatic. Eyes: Pupils equal round and reactive to light, extra-ocular motions intact. Lids and lashes normal. Conjunctiva and sclera are non-icteric and not injected. Cornea within normal limits. Periorbital areas with no swelling, redness, or edema. ENT: Nares patent. No nasal discharge, no septal abnormalities noted. Tympanic membranes are normal and external auditory canals are clear. Oropharynx with no redness, swelling, or masses, exudates, or evidence of obstruction, uvula midline. Mucous membranes moist. Neck: Trachea midline, no thyromegaly or masses palpated, and no cervical lymphadenopathy. Supple, full range of motion without nuchal rigidity, or vertebral point tenderness. No Meningismus. Chest/axilla: Normal chest wall appearance and motion. Nontender with no deformity. No lesions are appreciated. Cardiovascular: Regular rate and rhythm with a normal S1 and S2. No gallops, murmurs, or rubs. Normal PMI, no JVD. No pulse deficits. Respiratory: Lungs have equal breath sounds bilaterally, clear to auscultation and percussion. No rales, rhonchi or wheezes noted. No increased work of breathing, no retractions or nasal flaring. Abdomen/GI: Soft, non-tender, with normal bowel sounds. No distension or tympany. No guarding or rebound. No evidence of tenderness throughout. Back: No spinal tenderness. No costovertebral tenderness. Full range of motion. Skin: Warm, dry with normal turgor. Normal color with no rashes, no lesions, and no evidence of cellulitis. MS/ Extremity: Pulses equal, no cyanosis. Neurovascular intact. Full, normal range of motion. Neuro: Awake and alert, GCS 15, oriented to person, place, time, and situation. Cranial nerves II-XII grossly intact. Motor strength 5/5 in all extremities. Sensory grossly intact. Cerebellar exam normal. Normal gait. Psych: Awake, alert, with orientation to person, place and time. Behavior, mood, and affect are within normal limits. 21:36 Neck: External neck: is normal, no acute changes, C-spine: appears grossly normal, no acute changes, Thyroid: appears normal, no acute changes, Trachea: is midline with no obvious abnormalities, no acute changes, ROM/movement: is normal, no acute changes, limited range of motion, is not appreciated, Meningeal signs: are not present, Kernig's sign is negative, Brudzinski's sign is negative, nuchal rigidity, is not appreciated, Lymph nodes: no appreciated lymphadenopathy. Vital Signs: 17:53 BP 139 / 70; Pulse 85; Resp 16; Temp 98.5; Pulse Ox 99% ; Weight 55.34 kg; Height 5 ft. ll1 2 in. ; Pain 10/10; 20:30 BP 132 / 77; Pulse 84; Resp 16; Pulse Ox 98% on R/A; jb4 21:45 BP 126 / 67; Pulse 92; Resp 16; Pulse Ox 95% on R/A; jb4 23:00 BP 112 / 76; Pulse 107; Resp 16; Pulse Ox 94% on R/A; jb4 17:53 Body Mass Index 22.31 (55.34 kg, 157.48 cm) ll1 17:53 Pain Scale: Adult ll1 Ron Coma Score: 21:37 Eye Response: spontaneous(4). Motor Response: obeys commands(6). Verbal Response: mary oriented(5). Total: 15. MDM: 18:33 Patient medically screened. mary 21:37 Differential diagnosis: cerebral abscess, cluster headache, epidural hematoma, mary hypertensive headache, migraine, neoplasm, sinusitis, subarachnoid bleed, subdural hematoma, temporal arteritis, tension headache, trigeminal neuralgia, vasomotor headache. Data reviewed: vital signs, nurses notes, lab test result(s), EKG, radiologic studies, CT scan, plain films. Consideration of Admission/Observation Escalation of care including admission/observation considered. I considered the following discharge prescriptions or medication management in the emergency department Medications were administered in the Emergency Department. See MAR. Test considered but Not performed: MRI: no mri brain. Care significantly affected by the following chronic conditions: Congestive Heart Failure, asthma, pacemaker, macular degeneration. 23:21 ED course: CT head angiography and CT neck angiography reveals no acute anomalies, CT sp4 head without contrast is also unremarkable . 23:30 ED course: Again since angiography head and neck reveals no flow restrictive lesions. sp4 No sign of aneurysm or brain bleed. Patient's headache has resolved after medications. Patient stable for discharge home with p.o. as needed Fioricet and p.o. as needed tramadol. . 09/21 18:20 Order name: Flu; Complete Time: 23:21 [facility] 09/21 18:20 Order name: SARS-COV-2 RT PCR; Complete Time: 21:53 [facility] 09/21 18:21 Order name: Urine W/Microscopic (UAM) [facility] 09/21 18:34 Order name: CBC with Diff; Complete Time: 21:29 [facility] 09/21 18:34 Order name: Comprehensive Metabolic Panel; Complete Time: 21:53 [facility] 09/21 21:36 Order name: CT Head Brain wo Cont; Complete Time: 23:21 [facility] 09/21 21:36 Order name: CT Head Angio; Complete Time: 23:21 [facility] 09/21 21:36 Order name: CT Neck Angio; Complete Time: 23:21 [facility] Administered Medications: 21:00 Drug: NS 0.9% IV 500 ml Route: IV; Rate: bolus; Site: left wrist; jb4 21:01 Drug: NS 0.9% IV 1000 ml Route: IV; Rate: 125 ml/hr; Site: left wrist; jb4 21:01 Drug: Ondansetron IVP 4 mg Route: IVP; Site: left wrist; jb4 22:56 Drug: fentaNYL (PF) IVP 25 mcg Route: IVP; Site: left forearm; jb4 22:56 Drug: Ketorolac IVP 15 mg Route: IVP; Site: left forearm; jb4 22:56 Drug: metoCLOPramide IVP 10 mg Route: IVP; Site: left forearm; jb4 22:56 Drug: diphenhydrAMINE IVP 25 mg Route: IVP; Site: left forearm; jb4 Disposition Summary: 09/21/22 23:31 Discharge Ordered Location: Home sp4 Problem: new sp4 Symptoms: have improved sp4 Condition: Stable sp4 Diagnosis - Episodic tension-type headache sp4 - Acute moderate to severe headache sp4 Followup: sp4 - With: Private Physician - When: 7 - 10 days - Reason: Recheck today's complaints Discharge Instructions: - Discharge Summary Sheet sp4 - General Headache Without Cause, [id number] sp4 Forms: - Patient Portal [email or web address].htm sp4 Prescriptions: - Fioricet 50-300-40 mg Oral capsule - take 1 capsule by ORAL route every 6 hours PRN headache; 30 capsule; Refills: sp4 0, Product Selection Permitted - Tramadol 50 mg Oral Tablet - take 1 tablet by ORAL route every 6 hours PRN headache; 20 tablet; Refills: 0, sp4 Product Selection Permitted Signatures: Dispatcher [employer] Elijah Jacinto MD MD cha Bryson, James RN RN jb4 Larisa Cooper RN RN ll1 Dave Carreon MD MD sp4 Corrections: (The following items were deleted from the chart) 22:57 18:35 Urinalysis+U.LAB.BRZ ordered. [facility]
--- NOTE | 2022-09-21 23:32 | ER ---
Nurse's Notes [facility] Name: Kassidy Montana Age: 82 yrs Sex: Female : 1940 Arrival Date: 09/21/2022 Time: 17:41 Bed 4 Private MD: Diagnosis: Episodic tension-type headache;Acute moderate to severe headache Presentation: 09/21 17:53 Chief complaint: Patient states: MURPHY with N/V for 3 days. No fever. Coronavirus screen: ll1 Vaccine status: Patient reports receiving the 2nd dose of the covid vaccine. Client denies travel out of the [place] in the last 14 days. At this time, the client does not indicate any symptoms associated with coronavirus-19. Ebola Screen: Patient denies travel to an Ebola-affected area in the 21 days before illness onset. Initial Sepsis Screen: Does the patient meet any 2 criteria? No. Patient's initial sepsis screen is negative. Does the patient have a suspected source of infection? No. Patient's initial sepsis screen is negative. Risk Assessment: Do you want to hurt yourself or someone else? Patient reports no desire to harm self or others. Onset of symptoms was September 19, 2022. 17:53 Method Of Arrival: Ambulatory ll1 17:53 Acuity: ZOHRA 3 ll1 Triage Assessment: 17:54 Headache History: Denies prior headaches. General: Appears uncomfortable, Behavior is ll1 calm, cooperative, appropriate for age. Pain: Complains of pain in head Pain. Neuro: Reports headache weakness. GI: Reports nausea, vomiting. Historical: - Allergies: 17:51 No Known Allergies; ll1 - PMHx: 17:51 CHF; Asthma; Pacemaker; Arthritis; macular degeneration; ll1 - PSHx: 17:51 pacemaker replaced; ll1 - Immunization history:: Client reports receiving the 2nd dose of the Covid vaccine. - Social history:: Smoking status: Patient denies any tobacco usage or history of. - Family history:: not pertinent. Screenin:43 [facility] ED Fall Risk Assessment (Adult) History of falling in the last 3 months, jb4 including since admission No falls in past 3 months (0 pts) Confusion or Disorientation No (0 pts). Abuse screen: Denies threats or abuse. Nutritional screening: No deficits noted. Tuberculosis screening: No symptoms or risk factors identified. Assessment: 19:15 General: Appears in no apparent distress. uncomfortable, Behavior is calm, cooperative, jb4 appropriate for age. Pain: Complains of pain in headache. Pain does not radiate. Pain currently is 9 out of 10 on a pain scale. Neuro: Level of Consciousness is awake, alert, obeys commands, Oriented to person, place, time, situation, Reports headache. Cardiovascular: Patient's skin is warm and dry. Respiratory: Airway is patent Respiratory effort is even, unlabored, Respiratory pattern is regular, symmetrical. GI: No signs and/or symptoms were reported involving the gastrointestinal system. : No signs and/or symptoms were reported regarding the genitourinary system. EENT: No signs and/or symptoms were reported regarding the EENT system. Derm: Skin is intact, Skin is pink, warm \T\ dry. Musculoskeletal: Circulation, motion, and sensation intact. Range of motion: intact in all extremities. 20:30 Reassessment: Patient appears in no apparent distress at this time. Patient and/or jb4 family updated on plan of care and expected duration. Pain level reassessed. Patient is alert, oriented x 3, equal unlabored respirations, skin warm/dry/pink. 21:30 Reassessment: Patient appears in no apparent distress at this time. Patient and/or jb4 family updated on plan of care and expected duration. Pain level reassessed. Patient is alert, oriented x 3, equal unlabored respirations, skin warm/dry/pink. 23:12 Reassessment: Patient appears in no apparent distress at this time. Patient and/or jb4 family updated on plan of care and expected duration. Pain level reassessed. Patient is alert, oriented x 3, equal unlabored respirations, skin warm/dry/pink. Patient states feeling better. Vital Signs: 17:53 BP 139 / 70; Pulse 85; Resp 16; Temp 98.5; Pulse Ox 99% ; Weight 55.34 kg; Height 5 ft. ll1 2 in. ; Pain 10/10; 20:30 BP 132 / 77; Pulse 84; Resp 16; Pulse Ox 98% on R/A; jb4 21:45 BP 126 / 67; Pulse 92; Resp 16; Pulse Ox 95% on R/A; jb4 23:00 BP 112 / 76; Pulse 107; Resp 16; Pulse Ox 94% on R/A; jb4 17:53 Body Mass Index 22.31 (55.34 kg, 157.48 cm) ll1 17:53 Pain Scale: Adult ll1 Ron Coma Score: 21:37 Eye Response: spontaneous(4). Motor Response: obeys commands(6). Verbal Response: mary oriented(5). Total: 15. ED Course: 17:43 Patient arrived in ED. im 17:55 Triage completed. ll1 17:55 Arm band placed on. ll1 18:33 Elijah Grant MD is Attending Physician. mary 21:00 Stanley Prasad, HOLLY is Primary Nurse. jb4 21:01 Inserted saline lock: 22 gauge in left wrist, using aseptic technique. Missed jb4 attempt(s): 22 gauge 24 gauge in right wrist. Bleeding controlled, band aid applied, catheter tip intact. 21:53 Attending Physician role handed off by Elijah Grant MD sp4 21:53 Dave Carreon MD is Attending Physician. sp4 22:42 CT Head Brain wo Cont In Process Unspecified. EDMS 22:42 CT Head Angio In Process Unspecified. EDMS 22:42 CT Neck Angio In Process Unspecified. EDMS 23:43 Patient has correct armband on for positive identification. Bed in low position. Call jb4 light in reach. Side rails up X 1. 23:43 No provider procedures requiring assistance completed. IV discontinued, intact, jb4 bleeding controlled, No redness/swelling at site. Pressure dressing applied. Administered Medications: 21:00 Drug: NS 0.9% IV 500 ml Route: IV; Rate: bolus; Site: left wrist; jb4 21:01 Drug: NS 0.9% IV 1000 ml Route: IV; Rate: 125 ml/hr; Site: left wrist; jb4 21:01 Drug: Ondansetron IVP 4 mg Route: IVP; Site: left wrist; jb4 22:56 Drug: fentaNYL (PF) IVP 25 mcg Route: IVP; Site: left forearm; jb4 22:56 Drug: Ketorolac IVP 15 mg Route: IVP; Site: left forearm; jb4 22:56 Drug: metoCLOPramide IVP 10 mg Route: IVP; Site: left forearm; jb4 22:56 Drug: diphenhydrAMINE IVP 25 mg Route: IVP; Site: left forearm; jb4 Outcome: 23:31 Discharge ordered by . sp4 23:43 Discharged to home ambulatory, with family. jb4 23:43 Condition: stable 23:43 Discharge instructions given to patient, Instructed on discharge instructions, follow up and referral plans. no drinking with medication, no driving heavy equipment, medication usage, Demonstrated understanding of instructions, follow-up care, medications, Prescriptions given X 2. 23:44 Patient left the ED. jb4 Signatures: Dispatcher [employer] EDMS Elijah Grant MD MD cha Bryson, James RN RN jb4 Larisa Cooper RN RN ll1 Dave Carreon MD MD sp4 Carlota Currie
[2022-09-22 00:09] LABS: Specific Gravity 1.011 (1.005-1.030); Urine Bacteria <20 /HPF (<20); Urine Bilirubin NEGATIVE (Negative); Urine Blood Negative (Negative); Urine Clarity Clear (Clear); Urine Color Colorless (Yellow); Urine Glucose NEGATIVE (Negative); Urine Protein NEGATIVE (Negative); Urine RBC None Seen /HPF (None Seen); Urine Urobilinogen Normal (Normal); Urine pH 5.5 (5.0-7.0)
[2022-09-22 02:38] VITALS: TEMP 98.5
[2022-09-22 02:42] VITALS: BP 112/76; O2SAT 94
== END 2022-09-21 23:44 | disposition home or self-care (01) ==
LOC: ER 17:41
DX: G44.219 Episodic tension-type headache, not intractable (principal); I50.9 Heart failure, unspecified; Z95.0 Presence of cardiac pacemaker; Z20.822 Contact with and (suspected) exposure to COVID-19
CPT/HCPCS: 85025; 81001; 36415; 80053; 87635; 87804 ×2; 70450; 70496; 70498; Q9967; J2765; J1200; J3010; J2405; J7040; J7030